=== PATIENT | male | born 1950 | race Caucasian/White ===

== ENCOUNTER 2022-01-25 03:58 | Inpatient (IN) | payer OTHER ==
[~2022-01-25] VITALS: Ht 170.2 cm; Wt 70.6 kg
[2022-01-25] MEDS ORDERED: ONDANSETRON HCL 4 MG/2 ML VIAL IV ONE (04:45)
[2022-01-25] MEDS ORDERED: SODIUM CHLORIDE 0.9% 500 ML IV ONE (04:45)
[2022-01-25] MEDS ORDERED: MORPHINE SULFATE INJ 2 MG/ml SYRG IV ONE (04:45)
[2022-01-25 04:58] LABS: Basophils # (auto) 0.1 10 ^3/uL (0-0.2); Basophils % (auto) 0.4 % (0.0-2.0); Eosinophils # (auto) 0.1 10 ^3/uL (0-0.8); Eosinophils % (auto) 0.3 % (0.0-7.0); Hematocrit 46.1 % (41.0-53.0); Hemoglobin 13.1 g/dL (13.5-17.5); Lymphocytes # (auto) 1.6 10 ^3/uL (0.4-5.4); Lymphocytes % (auto) 7.1 % (10.0-50.0); Mean Corpuscular Hemoglobin 24.5 pg (28.0-32.0); Mean Corpuscular Hgb Conc. 28.5 g/dL (32.0-36.0); Mean Corpuscular Volume 85.8 fL (80.0-100.0); Monocytes # (auto) 1.3 10 ^3/uL (0-1.3); Neutrophils # (auto) 19.3 10 ^3/uL (1.6-8.6); Neutrophils % (auto) 86.2 % (37.0-80.0); Nucleated Red Blood Cells % 0.1 %; Red Blood Cells 5.37 10^6/uL (4.5-5.90); Red Cell Distribution Width 18.3 % (11.8-14.3); White Blood Cell 22.4 10^3/uL (4.4-10.8)
[2022-01-25] MEDS ORDERED: IOHEXOL 350 MG/ML 100ML IJ ONE (05:03)
[2022-01-25] MEDS ORDERED: MORPHINE SULFATE 4 MG/ML SYR/VIAL ONE (05:08)
[2022-01-25] MEDS ORDERED: PIPERACILLIN-TAZO 4.5GM 100 ML IV ONE (06:00)
[2022-01-25 06:32] LABS: INR 1.13 (0.9-1.15)
[2022-01-25] MEDS ORDERED: InsuLIN R (HUMAN) 100 UNITS in SODIUM CHL 0.9% 99 ML IV SCH ×2 (06:45→21:45)
[2022-01-25] MEDS ORDERED: DEXTROSE (50%) 50ML SYRG IV PRN ×2 (06:45→10:15)
[2022-01-25] MEDS ORDERED: INSULIN LANTUS (GLARGINE) 1 /0.01ml (100units/ml) SC ONE (06:45)
[2022-01-25] MEDS ORDERED: SODIUM CHLORIDE 0.9% 1,000 ML IV ONE ×2 (07:00→08:00)
[2022-01-25] MEDS ORDERED: InsuLIN REG 1unit/0.01ml Soln (100units/ml) IV ONE (07:00)
[2022-01-25 07:07] LABS: Lactic Acid w/Reflex 5.7 mmol/L (0.4-2.0)
[2022-01-25] MEDS: ACCU-CHEK COMFORT CURVE STRIP VI SCH ×10 (07:43→22:42)
[2022-01-25] MEDS ORDERED: ENOXAPARIN SOD 100 MG/1 ML SYRINGE SC ONE (08:00)
[2022-01-25] MEDS ORDERED: cefTRIAXone 1GM/50ML D5W 50 ML IV ONE (08:00)
[2022-01-25 09:14] LABS: Urine WBC None Seen /hpf (0 - 3)
[2022-01-25 09:22] LABS: BUN/Creatinine Ratio 16.2
[2022-01-25 09:23] LABS: Albumin 3.1 g/dL (3.4-5.0); Bilirubin, Total 0.5 mg/dL (0.2-1.0); Calcium 8.3 mg/dL (8.5-10.1); Magnesium 3.2 mg/dL (1.6-2.6); Total Protein 6.5 g/dL (6.4-8.2)
[2022-01-25 09:28] LABS: Potassium 6.1 mmol/L (3.5-5.1)
[2022-01-25 09:34] LABS: Urine Bacteria FEW /hpf (None Seen); Urine Blood 2+ /uL (Negative); Urine Hyaline Cast FEW /lpf (0 - 2); Urine Mucus FEW (None Seen); Urine Specific Gravity 1.028 (1.001-1.035)
[2022-01-25] MEDS ORDERED: SODIUM BICARBONATE 8.4 % INJ 50ML VIAL IV ONE ×2 (09:45→10:00)
[2022-01-25] MEDS ORDERED: CALCIUM GLUC 1,000mg/50ml-NS 50 ML IV ONE (09:45)
[2022-01-25] MEDS ORDERED: NITROGLYCERIN 0.4 MG SL TAB SL PRN (10:00)
[2022-01-25] MEDS ORDERED: MORPHINE SULFATE INJ 2 MG/ml SYRG IV PRN (10:00)
[2022-01-25] MEDS ORDERED: HEPARIN SODIUM (PORCINE) 5000 UNITS/ML 1ML VIAL IV ONE ×2 (10:00→18:00)
[2022-01-25] MEDS ORDERED: SODIUM BICARBONATE 50ML VIAL 150 ML in D5W 5% 1,000 ML IV ONE (10:00)
[2022-01-25 10:01] LABS: Alcohol, Urine < 3.0 mg/dL (0-10); Amphetamine Screen, Urine NEGATIVE (NEGATIVE); Barbiturate Scree,Urine NEGATIVE (NEGATIVE); Benzodiazephine Screen, Urine NEGATIVE (NEGATIVE); Cannabinoid Screen, Urine NEGATIVE (NEGATIVE); Cocaine Screen, Urine NEGATIVE (NEGATIVE); Opiate Scree,Urine NEGATIVE (NEGATIVE); Phencyclidine Screen, Urine NEGATIVE (NEGATIVE)
[2022-01-25] MEDS: MORPHINE SULFATE INJ 2 MG/ml SYRG IV PRN (10:11)
[2022-01-25] MEDS ORDERED: VANCOMYCIN PER PHARMACY 0 MG IV SCH (10:15)
[2022-01-25] MEDS ORDERED: VANCOMYCIN 1GM/250ML 250 ML IV ONE (11:00)
[2022-01-25 11:18] LABS: Calcium 8.3 mg/dL (8.5-10.1)
[2022-01-25 11:28] LABS: Cholesterol 87 mg/dL (< 200); HDL Cholesterol 31 mg/dL (40-59); LDL Cholesterol 39 mg/dL (< 100); Triglycerides 168 mg/dL (< 150)
[2022-01-25 11:52] LABS: BUN/Creatinine Ratio 17.8
[2022-01-25] MEDS ORDERED: SODIUM CHLORIDE 0.9% 1,000 ML IV SCH (12:00)
[2022-01-25] MEDS: PIPERACILLIN-TAZOB 2.25GM 50 ML IV SCH ×2 (13:21→18:44)
[2022-01-25 13:44] LABS: Calcium 8.5 mg/dL (8.5-10.1); Potassium 4.1 mmol/L (3.5-5.1)
[2022-01-25 13:54] LABS: BUN/Creatinine Ratio 19.4
[2022-01-25] MEDS ORDERED: SODIUM CHL 0.9% 50 ML ONE ×2 (15:17→16:42)
[2022-01-25] MEDS ORDERED: MIDAZOLAM HCL 2MG/2ML 2ml VIAL (1mg/ml) ONE (15:17)
[2022-01-25] MEDS ORDERED: ANGIOMAX 250 MG VIAL IV ONE ×2 (15:17→16:42)
[2022-01-25] MEDS ORDERED: fentaNYL CITRATE 100 MCG/2 ML VL ONE (15:17)
[2022-01-25] MEDS ORDERED: IODIXANOL 320MG/ML 100ML BTL IV ONE ×2 (15:26→15:58)
[2022-01-25] MEDS ORDERED: LIDOCAINE 2%HCL (LOCAL ANESTH.) INJ 20ML MDV ONE (15:26)
[2022-01-25] MEDS ORDERED: CATHFLO ACTIVASE (ALTEPLASE) 2 MG VIAL ONE ×2 (16:46→17:06)
[2022-01-25] MEDS ORDERED: HEPARIN DRIP/D5W 100UNITS/ML 250 ML IV ONE (17:13)
[2022-01-25] MEDS ORDERED: ALTEPLASE (RECOMBINANT) 100 MG in STERILE WATER 100 ML IV SCH (17:15)
[2022-01-25] MEDS ORDERED: ALTEPLASE (RECOMBINANT) 100 MG in STERILE WATER 100 ML IV ONE (17:30)
[2022-01-25 18:00] VITALS: BP 103/54
[2022-01-25] MEDS ORDERED: HEPARIN DRIP/D5W 100UNITS/ML 250 ML IV SCH ×2 (18:00→21:45)
[2022-01-25] MEDS: SODIUM BICARBONATE 50ML VIAL 75 ML in SOD CHL 0.45% 1,000 ML IV SCH (18:42)
[2022-01-25 19:00] VITALS: BP_SYST 103; BP_DIAS 54; BP_DIAS 58
[2022-01-25 20:00] VITALS: BP 95/50
[2022-01-25 21:00] VITALS: BP 99/49
[2022-01-25 21:56] LABS: Hematocrit 38.9 % (41.0-53.0)
[2022-01-25 22:00] VITALS: BP 103/45
[2022-01-25 22:09] LABS: BUN/Creatinine Ratio 20.1; Calcium 8.4 mg/dL (8.5-10.1); Potassium 3.5 mmol/L (3.5-5.1)
[2022-01-25] MEDS: PANTOPRAZOLE 40 MG TAB PO SCH (22:18)
[2022-01-25 22:30] LABS: INR 1.23 (0.9-1.15); Partial Thromboplastin Time 53.8 sec (24.6-33.4)
[2022-01-25 23:00] VITALS: BP 93/55
[2022-01-26] VITALS (22 sets, daily range): BP systolic 83–143; BP diastolic 38–71
[2022-01-26] MEDS: PIPERACILLIN-TAZOB 2.25GM 50 ML IV SCH ×2 (00:11→06:14)
[2022-01-26] MEDS: ACCU-CHEK COMFORT CURVE STRIP VI SCH ×12 (00:15→20:45)
[2022-01-26] MEDS: MORPHINE SULFATE INJ 2 MG/ml SYRG IV PRN ×2 (02:09→08:17)
[2022-01-26] MEDS: SODIUM BICARBONATE 50ML VIAL 75 ML in SOD CHL 0.45% 1,000 ML IV SCH (02:45)
[2022-01-26 04:31] LABS: Eosinophils # (auto) 0 10 ^3/uL (0-0.8); Eosinophils % (auto) 0.1 % (0.0-7.0); Lymphocytes # (auto) 0.6 10 ^3/uL (0.4-5.4); Neutrophils # (auto) 9.8 10 ^3/uL (1.6-8.6); Nucleated Red Blood Cells % 0.1 %
[2022-01-26 04:33] LABS: Basophils # (auto) 0.1 10 ^3/uL (0-0.2); Basophils % (auto) 0.5 % (0.0-2.0); Hematocrit 36.7 % (41.0-53.0); Hemoglobin 11.6 g/dL (13.5-17.5); Lymphocytes % (auto) 5.4 % (10.0-50.0); Mean Corpuscular Hemoglobin 24.5 pg (28.0-32.0); Mean Corpuscular Hgb Conc. 31.7 g/dL (32.0-36.0); Mean Corpuscular Volume 77.1 fL (80.0-100.0); Monocytes % (auto) 8.8 % (0.0-12.0); Neutrophils % (auto) 85.2 % (37.0-80.0); Red Blood Cells 4.76 10^6/uL (4.5-5.90); Red Cell Distribution Width 17.2 % (11.8-14.3); White Blood Cell 11.5 10^3/uL (4.4-10.8)
[2022-01-26 04:47] LABS: INR 1.04 (0.9-1.15); Partial Thromboplastin Time 29.1 sec (24.6-33.4)
[2022-01-26] MEDS ORDERED: HEPARIN SODIUM (PORCINE) 5000 UNITS/ML 1ML VIAL IV ONE (05:00)
[2022-01-26] MEDS ORDERED: POTASSIUM CHLORIDE 60 MEQ, LIDOCAINE 1% (LOCAL ANESTH.) 6 ML in SODIUM CHL 0.9% 500 ML IV ONE ×6 (08:45)
[2022-01-26] MEDS: PANTOPRAZOLE 40 MG TAB PO SCH ×2 (10:00→22:05)
[2022-01-26] MEDS ORDERED: INSULIN LANTUS (GLARGINE) 1 /0.01ml (100units/ml) SC SCH (10:00)
[2022-01-26] MEDS ORDERED: VANCOMYCIN 1GM/250ML 250 ML IV SCH (11:00)
[2022-01-26] MEDS ORDERED: LIDOCAINE 2%HCL (LOCAL ANESTH.) INJ 20ML MDV ONE (11:03)
[2022-01-26] MEDS ORDERED: IODIXANOL 320MG/ML 100ML BTL IV ONE ×2 (11:03→12:38)
[2022-01-26] MEDS ORDERED: fentaNYL CITRATE 100 MCG/2 ML VL ONE (11:04)
[2022-01-26] MEDS ORDERED: MIDAZOLAM HCL 2MG/2ML 2ml VIAL (1mg/ml) ONE (11:04)
[2022-01-26] MEDS ORDERED: SODIUM CHL 0.9% 0 ML ONE (11:04)
[2022-01-26] MEDS ORDERED: ANGIOMAX 250 MG VIAL IV ONE (11:04)
[2022-01-26] MEDS ORDERED: HEPARIN SODIUM (PORCINE) 5000 UNITS/ML 1ML VIAL ONE ×2 (11:32→12:21)
[2022-01-26] MEDS ORDERED: PIPERACILLIN-TAZOB 3.375GM 100 ML IV SCH ×2 (12:27→12:30)
[2022-01-26] MEDS: SOD CHL 0.45% 1,000 ML IV SCH ×2 (14:02→22:35)
[2022-01-26] MEDS: VANCOMYCIN 1GM/250ML 250 ML IV SCH (14:03)
[2022-01-26] MEDS: INSULIN LANTUS (GLARGINE) 1 /0.01ml (100units/ml) SC SCH (14:04)
[2022-01-26] MEDS ORDERED: DEXTROSE (50%) 50ML SYRG IV PRN (14:30)
[2022-01-26 16:21] LABS: INR 1.13 (0.9-1.15)
[2022-01-26 16:23] LABS: Partial Thromboplastin Time > 139.0 sec (24.6-33.4)
[2022-01-26] MEDS: InsuLIN REG 1unit/0.01ml Soln (100units/ml) SC SCH ×2 (16:30→20:47)
[2022-01-26] MEDS ORDERED: HEPARIN DRIP/D5W 100UNITS/ML 250 ML IV SCH (17:30)
[2022-01-26] MEDS: RIVAROXABAN 20 MG TAB PO SCH (18:02)
[2022-01-26 18:10] LABS: INR 1.08 (0.9-1.15); Partial Thromboplastin Time 62.1 sec (24.6-33.4)
[2022-01-26] MEDS: ATORVASTATIN 20 MG TAB PO SCH (22:05)
[2022-01-26] MEDS: CLINDAMYCIN 600MG IV 50 ML IV SCH (22:05)
[2022-01-26 23:34] LABS: INR 1.24 (0.9-1.15); Partial Thromboplastin Time 46.7 sec (24.6-33.4)
[2022-01-27] VITALS (22 sets, daily range): BP systolic 107–148; BP diastolic 60–80
[2022-01-27] MEDS: ACCU-CHEK COMFORT CURVE STRIP VI SCH ×6 (00:04→20:09)
[2022-01-27] MEDS: InsuLIN REG 1unit/0.01ml Soln (100units/ml) SC SCH ×6 (00:11→20:12)
[2022-01-27] MEDS: SOD CHL 0.45% 1,000 ML IV SCH (03:56)
[2022-01-27 04:07] LABS: Basophils # (auto) 0 10 ^3/uL (0-0.2); Basophils % (auto) 0.4 % (0.0-2.0); Eosinophils # (auto) 0 10 ^3/uL (0-0.8); Eosinophils % (auto) 0.6 % (0.0-7.0); Hematocrit 34.6 % (41.0-53.0); Hemoglobin 11.2 g/dL (13.5-17.5); Monocytes # (auto) 0.6 10 ^3/uL (0-1.3); Neutrophils # (auto) 4.7 10 ^3/uL (1.6-8.6); Nucleated Red Blood Cells % 0.1 %; Red Cell Distribution Width 17.7 % (11.8-14.3)
[2022-01-27 04:13] LABS: Lymphocytes % (auto) 15.2 % (10.0-50.0); Mean Corpuscular Hemoglobin 24.6 pg (28.0-32.0); Mean Corpuscular Hgb Conc. 32.2 g/dL (32.0-36.0); Mean Corpuscular Volume 76.3 fL (80.0-100.0); Monocytes % (auto) 9.6 % (0.0-12.0); Neutrophils % (auto) 74.2 % (37.0-80.0); Red Blood Cells 4.54 10^6/uL (4.5-5.90); White Blood Cell 6.3 10^3/uL (4.4-10.8)
[2022-01-27 04:24] LABS: INR 1.12 (0.9-1.15); Partial Thromboplastin Time 36.2 sec (24.6-33.4)
[2022-01-27 04:34] LABS: Calcium 7.9 mg/dL (8.5-10.1); Potassium 3.2 mmol/L (3.5-5.1)
[2022-01-27 04:38] LABS: Albumin 2.4 g/dL (3.4-5.0); BUN/Creatinine Ratio 13.9
[2022-01-27 04:40] LABS: Bilirubin, Total 0.3 mg/dL (0.2-1.0); Total Protein 5.2 g/dL (6.4-8.2)
[2022-01-27] MEDS: VANCOMYCIN 1GM/250ML 250 ML IV SCH ×2 (05:17→21:21)
[2022-01-27] MEDS: CLINDAMYCIN 600MG IV 50 ML IV SCH ×3 (06:18→22:24)
[2022-01-27] MEDS ORDERED: POTASSIUM CHL 20 Meq TABLET PO ONE ×2 (08:45→09:30)
[2022-01-27] MEDS: PANTOPRAZOLE 40 MG TAB PO SCH ×2 (09:53→22:24)
[2022-01-27] MEDS: INSULIN LANTUS (GLARGINE) 1 /0.01ml (100units/ml) SC SCH (09:58)
[2022-01-27] MEDS ORDERED: ASPI1TAB20 PO (16:44)
[2022-01-27] MEDS ORDERED: MONT5CHW23 PO (17:06)
[2022-01-27] MEDS ORDERED: DOCU100T15 PO (17:06)
[2022-01-27] MEDS ORDERED: RAMI5CAP40 PO (17:06)
[2022-01-27] MEDS ORDERED: GLIP10TA9 PO (17:06)
[2022-01-27] MEDS ORDERED: LATA0.0019 EACHEYE (17:06)
[2022-01-27] MEDS ORDERED: PIO30T PO (17:06)
[2022-01-27] MEDS ORDERED: APIX2.5T PO (17:06)
[2022-01-27] MEDS ORDERED: MULT-928 PO (17:06)
[2022-01-27] MEDS ORDERED: ATO40T PO (17:06)
[2022-01-27] MEDS ORDERED: METF-370 PO ×2 (17:06)
[2022-01-27] MEDS ORDERED: FLUC200T50 PO (17:06)
[2022-01-27] MEDS ORDERED: TAM04C PO (17:06)
[2022-01-27] MEDS: TAMSULOSIN HYDROCHLORIDE 0.4 MG CAP PO SCH (17:57)
[2022-01-27] MEDS: RIVAROXABAN 20 MG TAB PO SCH (17:57)
[2022-01-27] MEDS: ATORVASTATIN 20 MG TAB PO SCH (22:24)
[2022-01-27] MEDS: LATANOPROST 0.005 % OPTH(EYE) SOL 2.5ML EACHEYE SCH (22:25)
[2022-01-28] VITALS (18 sets, daily range): BP systolic 66–142; BP diastolic 28–76
[2022-01-28] MEDS: ACCU-CHEK COMFORT CURVE STRIP VI SCH ×7 (00:19→23:49)
[2022-01-28] MEDS: InsuLIN REG 1unit/0.01ml Soln (100units/ml) SC SCH ×7 (00:22→23:57)
[2022-01-28 04:05] LABS: Basophils # (auto) 0 10 ^3/uL (0-0.2); Eosinophils # (auto) 0.1 10 ^3/uL (0-0.8); Lymphocytes # (auto) 0.7 10 ^3/uL (0.4-5.4); Nucleated Red Blood Cells % 0.1 %
[2022-01-28 04:07] LABS: Basophils % (auto) 0.5 % (0.0-2.0); Eosinophils % (auto) 3.1 % (0.0-7.0); Lymphocytes % (auto) 17.1 % (10.0-50.0); Mean Corpuscular Hemoglobin 24.7 pg (28.0-32.0); Mean Corpuscular Hgb Conc. 32.5 g/dL (32.0-36.0); Mean Corpuscular Volume 76.1 fL (80.0-100.0); Monocytes # (auto) 0.4 10 ^3/uL (0-1.3); Monocytes % (auto) 8.6 % (0.0-12.0); Neutrophils % (auto) 70.7 % (37.0-80.0); Red Blood Cells 4.47 10^6/uL (4.5-5.90); White Blood Cell 4.3 10^3/uL (4.4-10.8)
[2022-01-28 04:12] LABS: BUN/Creatinine Ratio 15.5; Calcium 8.2 mg/dL (8.5-10.1); Potassium 3.3 mmol/L (3.5-5.1)
[2022-01-28] MEDS ORDERED: POTASSIUM CHL 20 Meq TABLET PO ONE (09:15)
[2022-01-28] MEDS: PANTOPRAZOLE 40 MG TAB PO SCH ×2 (09:37→21:43)
[2022-01-28] MEDS: INSULIN LANTUS (GLARGINE) 1 /0.01ml (100units/ml) SC SCH ×2 (10:00→21:45)
[2022-01-28] MEDS: SOD CHL 0.45% 1,000 ML IV SCH (11:30)
[2022-01-28] MEDS: CLINDAMYCIN 600MG IV 50 ML IV SCH ×2 (15:02→21:43)
[2022-01-28] MEDS: VANCOMYCIN 1GM/250ML 250 ML IV SCH (17:08)
[2022-01-28] MEDS: TAMSULOSIN HYDROCHLORIDE 0.4 MG CAP PO SCH (17:22)
[2022-01-28] MEDS: RIVAROXABAN 20 MG TAB PO SCH (17:23)
[2022-01-28] MEDS: ATORVASTATIN 20 MG TAB PO SCH (21:42)
[2022-01-28] MEDS: LATANOPROST 0.005 % OPTH(EYE) SOL 2.5ML EACHEYE SCH (22:07)
[2022-01-29] MEDS: VANCOMYCIN 1GM/250ML 250 ML IV SCH ×2 (04:42→16:00)
[2022-01-29] MEDS: ACCU-CHEK COMFORT CURVE STRIP VI SCH ×6 (04:42→22:32)
[2022-01-29] MEDS: InsuLIN REG 1unit/0.01ml Soln (100units/ml) SC SCH ×5 (04:43→20:15)
[2022-01-29 05:00] VITALS: BP 106/56
[2022-01-29 05:24] LABS: Basophils # (auto) 0 10 ^3/uL (0-0.2); Basophils % (auto) 0.7 % (0.0-2.0); Eosinophils # (auto) 0.2 10 ^3/uL (0-0.8); Eosinophils % (auto) 5.5 % (0.0-7.0); Hematocrit 34.3 % (41.0-53.0); Hemoglobin 11.3 g/dL (13.5-17.5); Lymphocytes # (auto) 0.7 10 ^3/uL (0.4-5.4); Lymphocytes % (auto) 17.9 % (10.0-50.0); Mean Corpuscular Hemoglobin 24.9 pg (28.0-32.0); Mean Corpuscular Hgb Conc. 32.9 g/dL (32.0-36.0); Mean Corpuscular Volume 75.9 fL (80.0-100.0); Monocytes # (auto) 0.4 10 ^3/uL (0-1.3); Monocytes % (auto) 10.7 % (0.0-12.0); Neutrophils # (auto) 2.5 10 ^3/uL (1.6-8.6); Neutrophils % (auto) 65.2 % (37.0-80.0); Nucleated Red Blood Cells % 0.1 %; Red Blood Cells 4.52 10^6/uL (4.5-5.90); Red Cell Distribution Width 17.5 % (11.8-14.3); White Blood Cell 3.8 10^3/uL (4.4-10.8)
[2022-01-29 05:44] LABS: BUN/Creatinine Ratio 26.5; Calcium 8.4 mg/dL (8.5-10.1); Potassium 3.6 mmol/L (3.5-5.1)
[2022-01-29] MEDS: CLINDAMYCIN 600MG IV 50 ML IV SCH ×3 (05:57→22:32)
[2022-01-29 09:00] VITALS: BP 117/60
[2022-01-29] MEDS: PANTOPRAZOLE 40 MG TAB PO SCH ×2 (09:29→22:32)
[2022-01-29] MEDS: INSULIN LANTUS (GLARGINE) 1 /0.01ml (100units/ml) SC SCH ×2 (09:38→22:46)
[2022-01-29 13:00] VITALS: BP 122/71
[2022-01-29] MEDS: RIVAROXABAN 20 MG TAB PO SCH (16:48)
[2022-01-29] MEDS: TAMSULOSIN HYDROCHLORIDE 0.4 MG CAP PO SCH (16:49)
[2022-01-29 17:00] VITALS: BP 129/70
[2022-01-29] MEDS ORDERED: DEXTROSE (50%) 50ML SYRG IV PRN (21:00)
[2022-01-29 22:00] VITALS: BP 102/33
[2022-01-29] MEDS ORDERED: InsuLIN REG 1unit/0.01ml Soln (100units/ml) SC SCH (22:00)
[2022-01-29] MEDS: LATANOPROST 0.005 % OPTH(EYE) SOL 2.5ML EACHEYE SCH (22:31)
[2022-01-29] MEDS: ATORVASTATIN 20 MG TAB PO SCH (22:32)
[2022-01-30 05:00] VITALS: BP 118/68
[2022-01-30] MEDS: CLINDAMYCIN 600MG IV 50 ML IV SCH ×3 (05:22→22:20)
[2022-01-30] MEDS: ACCU-CHEK COMFORT CURVE STRIP VI SCH ×3 (06:09→22:20)
[2022-01-30 06:24] LABS: Basophils # (auto) 0 10 ^3/uL (0-0.2); Calcium 8.1 mg/dL (8.5-10.1); Hemoglobin 11.5 g/dL (13.5-17.5); Monocytes # (auto) 0.6 10 ^3/uL (0-1.3); Neutrophils # (auto) 3.3 10 ^3/uL (1.6-8.6); Potassium 3.9 mmol/L (3.5-5.1)
[2022-01-30 06:29] LABS: Basophils % (auto) 0.7 % (0.0-2.0); Eosinophils # (auto) 0.2 10 ^3/uL (0-0.8); Eosinophils % (auto) 4.6 % (0.0-7.0); Hematocrit 34.9 % (41.0-53.0); Lymphocytes # (auto) 0.9 10 ^3/uL (0.4-5.4); Mean Corpuscular Volume 75.7 fL (80.0-100.0); Neutrophils % (auto) 65.7 % (37.0-80.0); Nucleated Red Blood Cells % 0.2 %; Red Blood Cells 4.61 10^6/uL (4.5-5.90); Red Cell Distribution Width 17.3 % (11.8-14.3); White Blood Cell 5.1 10^3/uL (4.4-10.8)
[2022-01-30] MEDS ORDERED: InsuLIN REG 1unit/0.01ml Soln (100units/ml) SC SCH (07:00)
[2022-01-30 09:00] VITALS: BP 136/79
[2022-01-30] MEDS: VANCOMYCIN 1GM/250ML 250 ML IV SCH ×2 (10:24→20:33)
[2022-01-30] MEDS: PANTOPRAZOLE 40 MG TAB PO SCH ×2 (10:38→22:20)
[2022-01-30] MEDS: INSULIN LANTUS (GLARGINE) 1 /0.01ml (100units/ml) SC SCH ×2 (10:40→22:20)
[2022-01-30] MEDS ORDERED: DEXTROSE (50%) 50ML SYRG IV PRN (11:45)
[2022-01-30 13:00] VITALS: BP 128/69
[2022-01-30] MEDS ORDERED: PIPERACILLIN-TAZO 4.5GM 100 ML IV ONE (16:15)
[2022-01-30] MEDS ORDERED: HEPARIN DRIP/D5W 100UNITS/ML 250 ML IV SCH (16:15)
[2022-01-30 17:00] VITALS: BP 125/65
[2022-01-30] MEDS: TAMSULOSIN HYDROCHLORIDE 0.4 MG CAP PO SCH (17:30)
[2022-01-30 17:45] LABS: INR 1.06 (0.9-1.15); Partial Thromboplastin Time 26.8 sec (24.6-33.4)
[2022-01-30] MEDS: InsuLIN REG 1unit/0.01ml Soln (100units/ml) SC SCH ×2 (18:57→22:20)
[2022-01-30] MEDS: SODIUM CHLORIDE 0.9% 1,000 ML IV SCH (20:29)
[2022-01-30 22:00] VITALS: BP 125/68
[2022-01-30] MEDS: ATORVASTATIN 20 MG TAB PO SCH (22:20)
[2022-01-30] MEDS: LATANOPROST 0.005 % OPTH(EYE) SOL 2.5ML EACHEYE SCH (22:20)
[2022-01-31] MEDS: PIPERACILLIN-TAZO 4.5GM 100 ML IV SCH ×4 (00:27→22:58)
[2022-01-31 03:21] LABS: INR 1.03 (0.9-1.15); Partial Thromboplastin Time 29.8 sec (24.6-33.4)
[2022-01-31] MEDS ORDERED: HEPARIN SODIUM (PORCINE) 5000 UNITS/ML 1ML VIAL IV ONE (03:45)
[2022-01-31] MEDS: VANCOMYCIN 1GM/250ML 250 ML IV SCH ×2 (04:55→15:50)
[2022-01-31 05:00] VITALS: BP 96/59
[2022-01-31] MEDS: ACCU-CHEK COMFORT CURVE STRIP VI SCH ×4 (05:45→22:04)
[2022-01-31] MEDS: CLINDAMYCIN 600MG IV 50 ML IV SCH ×3 (06:13→22:04)
[2022-01-31] MEDS: InsuLIN REG 1unit/0.01ml Soln (100units/ml) SC SCH ×4 (06:32→22:06)
[2022-01-31 09:00] VITALS: BP 97/65
[2022-01-31 09:17] LABS: Lymphocytes % (auto) 20.7 % (10.0-50.0); Monocytes % (auto) 12.3 % (0.0-12.0); White Blood Cell 4.4 10^3/uL (4.4-10.8)
[2022-01-31 09:18] LABS: Basophils # (auto) 0 10 ^3/uL (0-0.2); Basophils % (auto) 0.7 % (0.0-2.0); Eosinophils # (auto) 0.2 10 ^3/uL (0-0.8); Eosinophils % (auto) 4.3 % (0.0-7.0); Hematocrit 36.5 % (41.0-53.0); Hemoglobin 11.7 g/dL (13.5-17.5); Lymphocytes # (auto) 0.9 10 ^3/uL (0.4-5.4); Mean Corpuscular Hemoglobin 24.6 pg (28.0-32.0); Mean Corpuscular Volume 76.8 fL (80.0-100.0); Monocytes # (auto) 0.5 10 ^3/uL (0-1.3); Neutrophils # (auto) 2.8 10 ^3/uL (1.6-8.6); Nucleated Red Blood Cells % 0.1 %; Red Blood Cells 4.75 10^6/uL (4.5-5.90)
[2022-01-31 09:19] LABS: Mean Corpuscular Hgb Conc. 32.1 g/dL (32.0-36.0); Red Cell Distribution Width 17.5 % (11.8-14.3)
[2022-01-31 10:01] LABS: INR 1.06 (0.9-1.15)
[2022-01-31] MEDS: HEPARIN DRIP/D5W 100UNITS/ML 250 ML IV SCH (11:48)
[2022-01-31] MEDS: PANTOPRAZOLE 40 MG TAB PO SCH ×2 (11:48→22:04)
[2022-01-31] MEDS: INSULIN LANTUS (GLARGINE) 1 /0.01ml (100units/ml) SC SCH ×2 (11:49→22:05)
[2022-01-31] MEDS: SODIUM CHLORIDE 0.9% 1,000 ML IV SCH ×2 (11:49→21:10)
[2022-01-31 13:00] VITALS: BP 104/62
[2022-01-31 16:45] LABS: INR 1.04 (0.9-1.15)
[2022-01-31 17:00] VITALS: BP 109/57
[2022-01-31] MEDS: TAMSULOSIN HYDROCHLORIDE 0.4 MG CAP PO SCH (19:43)
[2022-01-31] MEDS: LATANOPROST 0.005 % OPTH(EYE) SOL 2.5ML EACHEYE SCH (22:04)
[2022-01-31] MEDS: ATORVASTATIN 20 MG TAB PO SCH (22:04)
[2022-01-31 22:13] VITALS: BP 120/73
[2022-01-31 22:55] LABS: INR 1.08 (0.9-1.15); Partial Thromboplastin Time 50.5 sec (24.6-33.4)
[2022-02-01] MEDS: HEPARIN DRIP/D5W 100UNITS/ML 250 ML IV SCH (02:07)
[2022-02-01 04:50] VITALS: BP 118/64
[2022-02-01] MEDS: CLINDAMYCIN 600MG IV 50 ML IV SCH ×4 (05:43→21:33)
[2022-02-01] MEDS: InsuLIN REG 1unit/0.01ml Soln (100units/ml) SC SCH ×4 (05:47→22:00)
[2022-02-01] MEDS: PIPERACILLIN-TAZO 4.5GM 100 ML IV SCH (06:00)
[2022-02-01 06:55] LABS: Basophils # (auto) 0 10 ^3/uL (0-0.2); Mean Corpuscular Hemoglobin 24.6 pg (28.0-32.0); Mean Corpuscular Volume 76.6 fL (80.0-100.0); Monocytes # (auto) 0.7 10 ^3/uL (0-1.3); White Blood Cell 5.4 10^3/uL (4.4-10.8)
[2022-02-01 06:57] LABS: Basophils % (auto) 0.9 % (0.0-2.0); Eosinophils # (auto) 0.2 10 ^3/uL (0-0.8); Eosinophils % (auto) 4.6 % (0.0-7.0); Hematocrit 35.5 % (41.0-53.0); Hemoglobin 11.4 g/dL (13.5-17.5); Lymphocytes # (auto) 1.1 10 ^3/uL (0.4-5.4); Mean Corpuscular Hgb Conc. 32.2 g/dL (32.0-36.0); Monocytes % (auto) 13.7 % (0.0-12.0); Neutrophils # (auto) 3.2 10 ^3/uL (1.6-8.6); Neutrophils % (auto) 59.8 % (37.0-80.0); Nucleated Red Blood Cells % 0.2 %; Red Blood Cells 4.64 10^6/uL (4.5-5.90); Red Cell Distribution Width 17.4 % (11.8-14.3)
[2022-02-01 07:00] LABS: Potassium 3.5 mmol/L (3.5-5.1)
[2022-02-01 07:07] LABS: BUN/Creatinine Ratio 19.6; Calcium 7.8 mg/dL (8.5-10.1)
[2022-02-01 08:20] VITALS: BP 99/54
[2022-02-01 09:58] LABS: INR 1.03 (0.9-1.15)
[2022-02-01] MEDS ORDERED: HEPARIN DRIP/D5W 100UNITS/ML 250 ML IV SCH (11:00)
[2022-02-01] MEDS: ACCU-CHEK COMFORT CURVE STRIP VI SCH ×4 (11:07→21:34)
[2022-02-01] MEDS: PANTOPRAZOLE 40 MG TAB PO SCH ×2 (11:07→21:34)
[2022-02-01] MEDS: SODIUM CHLORIDE 0.9% 1,000 ML IV SCH ×2 (11:07→21:34)
[2022-02-01 12:40] VITALS: BP 113/66
[2022-02-01] MEDS: VANCOMYCIN 1GM/250ML 250 ML IV SCH (15:00)
[2022-02-01 16:15] VITALS: BP 116/64
[2022-02-01] MEDS: TAMSULOSIN HYDROCHLORIDE 0.4 MG CAP PO SCH (18:51)
[2022-02-01] MEDS: RIVAROXABAN 20 MG TAB PO SCH (18:51)
[2022-02-01] MEDS: LATANOPROST 0.005 % OPTH(EYE) SOL 2.5ML EACHEYE SCH (21:33)
[2022-02-01] MEDS: ATORVASTATIN 20 MG TAB PO SCH (21:34)
[2022-02-01 22:00] VITALS: BP 116/53
[2022-02-01] MEDS: INSULIN LANTUS (GLARGINE) 1 /0.01ml (100units/ml) SC SCH (22:01)
[2022-02-02] MEDS: VANCOMYCIN 1GM/250ML 250 ML IV SCH ×2 (02:36→16:02)
[2022-02-02 05:00] VITALS: BP 96/57
[2022-02-02] MEDS: CLINDAMYCIN 600MG IV 50 ML IV SCH ×3 (05:34→22:33)
[2022-02-02] MEDS: InsuLIN REG 1unit/0.01ml Soln (100units/ml) SC SCH ×4 (06:52→22:27)
[2022-02-02] MEDS: ACCU-CHEK COMFORT CURVE STRIP VI SCH ×4 (06:52→22:24)
[2022-02-02] MEDS ORDERED: INSULIN LANTUS (GLARGINE) 1 /0.01ml (100units/ml) SC SCH (07:00)
[2022-02-02 08:10] VITALS: BP 125/64
[2022-02-02 12:15] VITALS: BP 117/54
[2022-02-02] MEDS ORDERED: IOHEXOL 350 MG/ML 100ML IJ ONE (12:38)
[2022-02-02] MEDS: PANTOPRAZOLE 40 MG TAB PO SCH ×2 (14:13→22:37)
[2022-02-02 16:10] VITALS: BP 109/56
[2022-02-02] MEDS: TAMSULOSIN HYDROCHLORIDE 0.4 MG CAP PO SCH (19:24)
[2022-02-02] MEDS: RIVAROXABAN 20 MG TAB PO SCH (19:24)
[2022-02-02 22:00] VITALS: BP 110/57
[2022-02-02] MEDS: INSULIN LANTUS (GLARGINE) 1 /0.01ml (100units/ml) SC SCH (22:32)
[2022-02-02] MEDS: ATORVASTATIN 20 MG TAB PO SCH (22:34)
[2022-02-02] MEDS: LATANOPROST 0.005 % OPTH(EYE) SOL 2.5ML EACHEYE SCH (22:37)
[2022-02-03] MEDS: VANCOMYCIN 1GM/250ML 250 ML IV SCH ×2 (03:15→14:37)
[2022-02-03 04:10] LABS: Basophils # (auto) 0 10 ^3/uL (0-0.2); Eosinophils # (auto) 0.2 10 ^3/uL (0-0.8); Hemoglobin 10.8 g/dL (13.5-17.5); Monocytes # (auto) 0.7 10 ^3/uL (0-1.3)
[2022-02-03 04:16] LABS: Basophils % (auto) 0.8 % (0.0-2.0); Eosinophils % (auto) 4.1 % (0.0-7.0); Lymphocytes # (auto) 0.9 10 ^3/uL (0.4-5.4); Lymphocytes % (auto) 18.9 % (10.0-50.0); Mean Corpuscular Hemoglobin 24.2 pg (28.0-32.0); Mean Corpuscular Hgb Conc. 31.8 g/dL (32.0-36.0); Mean Corpuscular Volume 75.9 fL (80.0-100.0); Monocytes % (auto) 14.5 % (0.0-12.0); Neutrophils % (auto) 61.7 % (37.0-80.0); Nucleated Red Blood Cells % 0.1 %; Red Blood Cells 4.48 10^6/uL (4.5-5.90); Red Cell Distribution Width 18.1 % (11.8-14.3); White Blood Cell 4.8 10^3/uL (4.4-10.8)
[2022-02-03 05:00] VITALS: BP 117/62
[2022-02-03 05:09] LABS: Potassium 3.1 mmol/L (3.5-5.1)
[2022-02-03 05:16] LABS: Calcium 8.3 mg/dL (8.5-10.1)
[2022-02-03] MEDS: CLINDAMYCIN 600MG IV 50 ML IV SCH ×3 (05:49→21:23)
[2022-02-03] MEDS: InsuLIN REG 1unit/0.01ml Soln (100units/ml) SC SCH ×4 (06:11→21:21)
[2022-02-03] MEDS: ACCU-CHEK COMFORT CURVE STRIP VI SCH ×4 (06:11→21:20)
[2022-02-03] MEDS: INSULIN LANTUS (GLARGINE) 1 /0.01ml (100units/ml) SC SCH ×2 (06:11→21:22)
[2022-02-03 08:15] VITALS: BP 108/62
[2022-02-03] MEDS: PANTOPRAZOLE 40 MG TAB PO SCH ×2 (08:57→21:23)
[2022-02-03 12:10] VITALS: BP 122/61
[2022-02-03 16:10] VITALS: BP 100/61
[2022-02-03] MEDS: TAMSULOSIN HYDROCHLORIDE 0.4 MG CAP PO SCH (17:16)
[2022-02-03] MEDS: RIVAROXABAN 20 MG TAB PO SCH (17:16)
[2022-02-03] MEDS: ATORVASTATIN 20 MG TAB PO SCH (21:23)
[2022-02-03] MEDS: LATANOPROST 0.005 % OPTH(EYE) SOL 2.5ML EACHEYE SCH (21:25)
[2022-02-03 22:00] VITALS: BP 105/53
[2022-02-04] MEDS: VANCOMYCIN 1GM/250ML 250 ML IV SCH ×2 (03:20→15:25)
[2022-02-04] MEDS: CLINDAMYCIN 600MG IV 50 ML IV SCH ×3 (04:54→21:19)
[2022-02-04 05:00] VITALS: BP 98/56
[2022-02-04] MEDS: InsuLIN REG 1unit/0.01ml Soln (100units/ml) SC SCH ×4 (06:17→22:48)
[2022-02-04] MEDS: ACCU-CHEK COMFORT CURVE STRIP VI SCH ×4 (06:17→23:01)
[2022-02-04] MEDS: INSULIN LANTUS (GLARGINE) 1 /0.01ml (100units/ml) SC SCH ×2 (06:19→22:50)
[2022-02-04 08:00] VITALS: BP 133/67
[2022-02-04] MEDS: PANTOPRAZOLE 40 MG TAB PO SCH ×2 (09:45→21:20)
[2022-02-04 12:00] VITALS: BP 111/60
[2022-02-04 16:00] VITALS: BP 119/63
[2022-02-04] MEDS: TAMSULOSIN HYDROCHLORIDE 0.4 MG CAP PO SCH (18:26)
[2022-02-04] MEDS: RIVAROXABAN 20 MG TAB PO SCH (18:26)
[2022-02-04] MEDS: LATANOPROST 0.005 % OPTH(EYE) SOL 2.5ML EACHEYE SCH (21:20)
[2022-02-04] MEDS: ATORVASTATIN 20 MG TAB PO SCH (21:20)
[2022-02-04 21:47] VITALS: BP 132/67
[2022-02-05] MEDS: VANCOMYCIN 1GM/250ML 250 ML IV SCH ×2 (02:40→14:51)
[2022-02-05] MEDS: CLINDAMYCIN 600MG IV 50 ML IV SCH (05:06)
[2022-02-05 05:38] VITALS: BP 124/60
[2022-02-05] MEDS: ACCU-CHEK COMFORT CURVE STRIP VI SCH ×4 (06:26→21:57)
[2022-02-05] MEDS: InsuLIN REG 1unit/0.01ml Soln (100units/ml) SC SCH ×4 (06:31→21:59)
[2022-02-05] MEDS: INSULIN LANTUS (GLARGINE) 1 /0.01ml (100units/ml) SC SCH ×2 (06:32→22:00)
[2022-02-05 08:00] VITALS: BP 115/64
[2022-02-05] MEDS: PANTOPRAZOLE 40 MG TAB PO SCH (10:16)
[2022-02-05 12:00] VITALS: BP 105/57
[2022-02-05] MEDS: CLINDAMYCIN HCL 150 MG CAP PO SCH ×2 (13:49→21:57)
[2022-02-05 16:00] VITALS: BP 116/67
[2022-02-05] MEDS: TAMSULOSIN HYDROCHLORIDE 0.4 MG CAP PO SCH (17:51)
[2022-02-05] MEDS: RIVAROXABAN 20 MG TAB PO SCH (17:52)
[2022-02-05] MEDS: ATORVASTATIN 20 MG TAB PO SCH (21:57)
[2022-02-05] MEDS: LATANOPROST 0.005 % OPTH(EYE) SOL 2.5ML EACHEYE SCH (21:57)
[2022-02-05 22:00] VITALS: BP 111/60
[2022-02-06] MEDS: VANCOMYCIN 1GM/250ML 250 ML IV SCH ×2 (02:49→14:25)
[2022-02-06 05:00] VITALS: BP 107/56
[2022-02-06] MEDS: CLINDAMYCIN HCL 150 MG CAP PO SCH ×3 (06:29→21:53)
[2022-02-06] MEDS: ACCU-CHEK COMFORT CURVE STRIP VI SCH ×4 (06:30→21:54)
[2022-02-06] MEDS: InsuLIN REG 1unit/0.01ml Soln (100units/ml) SC SCH ×4 (06:30→21:58)
[2022-02-06] MEDS: INSULIN LANTUS (GLARGINE) 1 /0.01ml (100units/ml) SC SCH ×2 (06:37→21:55)
[2022-02-06 09:00] VITALS: BP 114/49
[2022-02-06 12:44] VITALS: BP 126/66
[2022-02-06 17:00] VITALS: BP 106/61
[2022-02-06] MEDS: TAMSULOSIN HYDROCHLORIDE 0.4 MG CAP PO SCH (17:07)
[2022-02-06] MEDS: RIVAROXABAN 20 MG TAB PO SCH (17:07)
[2022-02-06 20:53] VITALS: BP 100/55
[2022-02-06] MEDS: ATORVASTATIN 20 MG TAB PO SCH (21:54)
[2022-02-06] MEDS: LATANOPROST 0.005 % OPTH(EYE) SOL 2.5ML EACHEYE SCH (22:00)
[2022-02-07] VITALS (21 sets, daily range): BP systolic 111–157; BP diastolic 59–84
[2022-02-07] MEDS: VANCOMYCIN 1GM/250ML 250 ML IV SCH ×2 (02:51→15:00)
[2022-02-07] MEDS: ACCU-CHEK COMFORT CURVE STRIP VI SCH ×4 (06:20→22:28)
[2022-02-07] MEDS: CLINDAMYCIN HCL 150 MG CAP PO SCH ×3 (06:23→22:26)
[2022-02-07] MEDS: InsuLIN REG 1unit/0.01ml Soln (100units/ml) SC SCH ×4 (07:00→22:27)
[2022-02-07 07:09] LABS: Basophils # (auto) 0.1 10 ^3/uL (0-0.2); Basophils % (auto) 1.2 % (0.0-2.0); Eosinophils # (auto) 0.3 10 ^3/uL (0-0.8); Hematocrit 34.5 % (41.0-53.0); Hemoglobin 11.1 g/dL (13.5-17.5); Lymphocytes # (auto) 0.9 10 ^3/uL (0.4-5.4); Lymphocytes % (auto) 15.6 % (10.0-50.0); Mean Corpuscular Hemoglobin 24.5 pg (28.0-32.0); Mean Corpuscular Hgb Conc. 32.3 g/dL (32.0-36.0); Mean Corpuscular Volume 75.9 fL (80.0-100.0); Monocytes # (auto) 0.6 10 ^3/uL (0-1.3); Monocytes % (auto) 10.1 % (0.0-12.0); Neutrophils # (auto) 3.8 10 ^3/uL (1.6-8.6); Neutrophils % (auto) 68.1 % (37.0-80.0); Red Blood Cells 4.54 10^6/uL (4.5-5.90); White Blood Cell 5.5 10^3/uL (4.4-10.8)
[2022-02-07 07:12] LABS: INR 1.21 (0.9-1.15); Partial Thromboplastin Time 37.9 sec (24.6-33.4)
[2022-02-07 07:14] LABS: BUN/Creatinine Ratio 15.9; Calcium 8.3 mg/dL (8.5-10.1); Potassium 3.9 mmol/L (3.5-5.1)
[2022-02-07] MEDS: INSULIN LANTUS (GLARGINE) 1 /0.01ml (100units/ml) SC SCH ×2 (07:25→22:28)
[2022-02-07] MEDS ORDERED: LIDOCAINE 2%HCL (LOCAL ANESTH.) INJ 20ML MDV ONE ×2 (13:35→14:28)
[2022-02-07] MEDS ORDERED: IOHEXOL 350 MG/ML 100ML IJ ONE (13:35)
[2022-02-07] MEDS ORDERED: ANGIOMAX 250 MG VIAL IV ONE ×2 (13:49→15:15)
[2022-02-07] MEDS ORDERED: MIDAZOLAM HCL 2MG/2ML 2ml VIAL (1mg/ml) ONE ×2 (13:49→14:28)
[2022-02-07] MEDS ORDERED: fentaNYL CITRATE 100 MCG/2 ML VL ONE ×2 (13:49→14:28)
[2022-02-07] MEDS ORDERED: SODIUM CHL 0.9% 50 ML ONE ×2 (13:50→15:15)
[2022-02-07] MEDS ORDERED: HYDROmorphone HCL 2 MG/ML VL/or syr ONE (15:22)
[2022-02-07] MEDS ORDERED: CATHFLO ACTIVASE (ALTEPLASE) 2 MG VIAL ONE ×3 (15:23→16:05)
[2022-02-07] MEDS ORDERED: ALTEPLASE (RECOMBINANT) 100 MG in STERILE WATER 100 ML IV ONE ×7 (15:30→18:45)
[2022-02-07] MEDS ORDERED: HEPARIN DRIP/D5W 100UNITS/ML 250 ML IV ONE (15:37)
[2022-02-07] MEDS ORDERED: MORPHINE SULFATE INJ 2 MG/ml SYRG ONE ×2 (17:53→17:56)
[2022-02-07] MEDS: HEPARIN DRIP/D5W 100UNITS/ML 250 ML IV SCH (18:00)
[2022-02-07] MEDS: TAMSULOSIN HYDROCHLORIDE 0.4 MG CAP PO SCH (18:00)
[2022-02-07] MEDS: RIVAROXABAN 20 MG TAB PO SCH (18:00)
[2022-02-07 22:18] LABS: Basophils # (auto) 0 10 ^3/uL (0-0.2); Basophils % (auto) 0.6 % (0.0-2.0); Eosinophils # (auto) 0.2 10 ^3/uL (0-0.8); Eosinophils % (auto) 2.7 % (0.0-7.0); Hematocrit 33.6 % (41.0-53.0); Hemoglobin 10.7 g/dL (13.5-17.5); Lymphocytes # (auto) 0.9 10 ^3/uL (0.4-5.4); Lymphocytes % (auto) 13.6 % (10.0-50.0); Mean Corpuscular Hemoglobin 24.3 pg (28.0-32.0); Mean Corpuscular Hgb Conc. 31.9 g/dL (32.0-36.0); Mean Corpuscular Volume 76.2 fL (80.0-100.0); Monocytes # (auto) 0.6 10 ^3/uL (0-1.3); Monocytes % (auto) 8.6 % (0.0-12.0); Neutrophils # (auto) 4.7 10 ^3/uL (1.6-8.6); Neutrophils % (auto) 74.5 % (37.0-80.0); Nucleated Red Blood Cells % 0.1 %; Red Cell Distribution Width 18.1 % (11.8-14.3); White Blood Cell 6.4 10^3/uL (4.4-10.8)
[2022-02-07] MEDS: ATORVASTATIN 20 MG TAB PO SCH (22:26)
[2022-02-07] MEDS: LATANOPROST 0.005 % OPTH(EYE) SOL 2.5ML EACHEYE SCH (22:26)
[2022-02-07] MEDS: MORPHINE SULFATE INJ 2 MG/ml SYRG IV PRN (23:07)
[2022-02-08] VITALS (24 sets, daily range): BP systolic 97–149; BP diastolic 53–77
[2022-02-08 01:21] LABS: INR 1.28 (0.9-1.15); Partial Thromboplastin Time 45.1 sec (24.6-33.4)
[2022-02-08] MEDS: VANCOMYCIN 1GM/250ML 250 ML IV SCH ×2 (03:07→15:08)
[2022-02-08] MEDS: MORPHINE SULFATE INJ 2 MG/ml SYRG IV PRN ×6 (03:08→20:19)
[2022-02-08] MEDS: CLINDAMYCIN HCL 150 MG CAP PO SCH (05:24)
[2022-02-08] MEDS: InsuLIN REG 1unit/0.01ml Soln (100units/ml) SC SCH ×4 (06:25→22:14)
[2022-02-08] MEDS: ACCU-CHEK COMFORT CURVE STRIP VI SCH ×4 (06:37→22:13)
[2022-02-08] MEDS: INSULIN LANTUS (GLARGINE) 1 /0.01ml (100units/ml) SC SCH ×2 (06:37→22:13)
[2022-02-08 07:51] LABS: Basophils # (auto) 0 10 ^3/uL (0-0.2); Hemoglobin 10.3 g/dL (13.5-17.5); Lymphocytes # (auto) 0.7 10 ^3/uL (0.4-5.4); Monocytes # (auto) 0.4 10 ^3/uL (0-1.3)
[2022-02-08 07:53] LABS: Basophils % (auto) 0.8 % (0.0-2.0); Eosinophils # (auto) 0.1 10 ^3/uL (0-0.8); Eosinophils % (auto) 0.9 % (0.0-7.0); Hematocrit 31.8 % (41.0-53.0); Mean Corpuscular Hemoglobin 24.8 pg (28.0-32.0); Mean Corpuscular Hgb Conc. 32.5 g/dL (32.0-36.0); Mean Corpuscular Volume 76.2 fL (80.0-100.0); Monocytes % (auto) 7.1 % (0.0-12.0); Neutrophils # (auto) 4.7 10 ^3/uL (1.6-8.6); Neutrophils % (auto) 79.2 % (37.0-80.0); Red Blood Cells 4.18 10^6/uL (4.5-5.90); Red Cell Distribution Width 18.4 % (11.8-14.3); White Blood Cell 5.9 10^3/uL (4.4-10.8)
[2022-02-08 08:16] LABS: INR 1.17 (0.9-1.15); Partial Thromboplastin Time 38.2 sec (24.6-33.4)
[2022-02-08 12:15] LABS: Calcium 7.9 mg/dL (8.5-10.1)
[2022-02-08 12:29] LABS: Anion Gap 9 (5-15); Blood Urea Nitrogen 9 mg/dL (7-18); Carbon Dioxide 21 mmol/L (21-32); Chloride 107 mmol/L (98-107); Glucose 192 mg/dL (74-106); Potassium 3.7 mmol/L (3.5-5.1); Sodium 137 mmol/L (136-145)
[2022-02-08 12:30] LABS: BUN/Creatinine Ratio 14.3; GFR African American 162 mL/min; GFR Non-African American 134 mL/min
[2022-02-08 15:31] LABS: INR 1.11 (0.9-1.15); Partial Thromboplastin Time 36.2 sec (24.6-33.4)
[2022-02-08] MEDS: HEPARIN DRIP/D5W 100UNITS/ML 250 ML IV SCH (15:36)
[2022-02-08] MEDS ORDERED: HEPARIN DRIP/D5W 100UNITS/ML 250 ML IV SCH ×3 (15:45→23:00)
[2022-02-08] MEDS ORDERED: LIDOCAINE 2%HCL (LOCAL ANESTH.) INJ 20ML MDV ONE (17:24)
[2022-02-08] MEDS ORDERED: IODIXANOL 320MG/ML 100ML BTL IV ONE (17:24)
[2022-02-08] MEDS ORDERED: ANGIOMAX 250 MG VIAL IV ONE (17:27)
[2022-02-08] MEDS ORDERED: SODIUM CHL 0.9% 0 ML ONE (17:27)
[2022-02-08] MEDS ORDERED: MIDAZOLAM HCL 2MG/2ML 2ml VIAL (1mg/ml) ONE ×2 (17:27→18:31)
[2022-02-08] MEDS ORDERED: fentaNYL CITRATE 100 MCG/2 ML VL ONE ×2 (17:27→18:31)
[2022-02-08] MEDS ORDERED: HEPARIN SODIUM (PORCINE) 5000 UNITS/ML 1ML VIAL ONE ×3 (17:49→19:24)
[2022-02-08 21:10] LABS: Basophils # (auto) 0.1 10 ^3/uL (0-0.2); Basophils % (auto) 0.8 % (0.0-2.0); Eosinophils # (auto) 0.1 10 ^3/uL (0-0.8); Hemoglobin 9.8 g/dL (13.5-17.5); Lymphocytes # (auto) 0.5 10 ^3/uL (0.4-5.4); Mean Corpuscular Hgb Conc. 32.7 g/dL (32.0-36.0)
[2022-02-08 21:12] LABS: Hematocrit 29.9 % (41.0-53.0); Lymphocytes % (auto) 7.6 % (10.0-50.0); Mean Corpuscular Hemoglobin 25.2 pg (28.0-32.0); Mean Corpuscular Volume 77.1 fL (80.0-100.0); Monocytes # (auto) 0.5 10 ^3/uL (0-1.3); Monocytes % (auto) 7.4 % (0.0-12.0); Neutrophils # (auto) 5.8 10 ^3/uL (1.6-8.6); Neutrophils % (auto) 82.2 % (37.0-80.0); Red Blood Cells 3.88 10^6/uL (4.5-5.90); Red Cell Distribution Width 18.3 % (11.8-14.3)
[2022-02-08 21:25] LABS: Albumin 2.3 g/dL (3.4-5.0); BUN/Creatinine Ratio 11.8; Calcium 7.7 mg/dL (8.5-10.1); Potassium 4.6 mmol/L (3.5-5.1)
[2022-02-08 21:28] LABS: Bilirubin, Total 0.5 mg/dL (0.2-1.0); Total Protein 5.5 g/dL (6.4-8.2)
[2022-02-08 21:46] LABS: INR 1.16 (0.9-1.15)
[2022-02-08 21:47] LABS: Partial Thromboplastin Time > 139.0 sec (24.6-33.4)
[2022-02-08] MEDS: TAMSULOSIN HYDROCHLORIDE 0.4 MG CAP PO SCH (22:00)
[2022-02-08] MEDS: LATANOPROST 0.005 % OPTH(EYE) SOL 2.5ML EACHEYE SCH (22:12)
[2022-02-08] MEDS: CLINDAMYCIN 600MG IV 50 ML IV SCH (22:13)
[2022-02-08] MEDS: ATORVASTATIN 20 MG TAB PO SCH (22:13)
[2022-02-09] VITALS (22 sets, daily range): BP systolic 89–131; BP diastolic 47–103
[2022-02-09] MEDS: VANCOMYCIN 1GM/250ML 250 ML IV SCH ×2 (03:30→17:56)
[2022-02-09] MEDS: CLINDAMYCIN 600MG IV 50 ML IV SCH ×3 (05:35→21:48)
[2022-02-09] MEDS: ACCU-CHEK COMFORT CURVE STRIP VI SCH ×4 (06:40→21:49)
[2022-02-09] MEDS: INSULIN LANTUS (GLARGINE) 1 /0.01ml (100units/ml) SC SCH ×2 (06:46→22:01)
[2022-02-09] MEDS: InsuLIN REG 1unit/0.01ml Soln (100units/ml) SC SCH ×4 (06:47→21:58)
[2022-02-09 07:43] LABS: Basophils # (auto) 0.1 10 ^3/uL (0-0.2); Basophils % (auto) 1.4 % (0.0-2.0); Eosinophils # (auto) 0.2 10 ^3/uL (0-0.8); Monocytes # (auto) 0.5 10 ^3/uL (0-1.3); Neutrophils # (auto) 2.8 10 ^3/uL (1.6-8.6); Nucleated Red Blood Cells % 0.1 %; White Blood Cell 4.2 10^3/uL (4.4-10.8)
[2022-02-09 07:45] LABS: Eosinophils % (auto) 3.6 % (0.0-7.0); Hematocrit 27.6 % (41.0-53.0); Lymphocytes # (auto) 0.7 10 ^3/uL (0.4-5.4); Lymphocytes % (auto) 16.9 % (10.0-50.0); Mean Corpuscular Hemoglobin 24.6 pg (28.0-32.0); Mean Corpuscular Hgb Conc. 32.6 g/dL (32.0-36.0); Mean Corpuscular Volume 75.6 fL (80.0-100.0); Monocytes % (auto) 11.2 % (0.0-12.0); Neutrophils % (auto) 66.9 % (37.0-80.0); Red Blood Cells 3.66 10^6/uL (4.5-5.90); Red Cell Distribution Width 18.3 % (11.8-14.3)
[2022-02-09 08:02] LABS: Potassium 4.2 mmol/L (3.5-5.1)
[2022-02-09 08:08] LABS: Albumin 2.3 g/dL (3.4-5.0); BUN/Creatinine Ratio 14.3; Bilirubin, Total 0.4 mg/dL (0.2-1.0); Calcium 7.6 mg/dL (8.5-10.1); Total Protein 4.8 g/dL (6.4-8.2)
[2022-02-09 08:15] LABS: INR 1.08 (0.9-1.15); Partial Thromboplastin Time 38.7 sec (24.6-33.4)
[2022-02-09] MEDS: MORPHINE SULFATE INJ 2 MG/ml SYRG IV PRN (08:29)
[2022-02-09] MEDS ORDERED: ENOXAPARIN SOD 80 MG/0.8ML SYRINGE SC ONE (16:30)
[2022-02-09 17:26] LABS: INR 1.04 (0.9-1.15); Partial Thromboplastin Time 30.5 sec (24.6-33.4)
[2022-02-09] MEDS: TAMSULOSIN HYDROCHLORIDE 0.4 MG CAP PO SCH (17:37)
[2022-02-09] MEDS: LATANOPROST 0.005 % OPTH(EYE) SOL 2.5ML EACHEYE SCH (21:47)
[2022-02-09] MEDS: ENOXAPARIN SOD 80 MG/0.8ML SYRINGE SC SCH (21:48)
[2022-02-09] MEDS: ATORVASTATIN 20 MG TAB PO SCH (21:48)
[2022-02-10] VITALS (8 sets, daily range): BP systolic 105–125; BP diastolic 49–65
[2022-02-10] MEDS: VANCOMYCIN 1GM/250ML 250 ML IV SCH ×2 (03:16→15:49)
[2022-02-10 03:52] LABS: Basophils # (auto) 0.1 10 ^3/uL (0-0.2); Basophils % (auto) 1.4 % (0.0-2.0); Eosinophils # (auto) 0.2 10 ^3/uL (0-0.8); Hemoglobin 9.1 g/dL (13.5-17.5); Lymphocytes # (auto) 0.8 10 ^3/uL (0.4-5.4); Lymphocytes % (auto) 21.5 % (10.0-50.0); Mean Corpuscular Hemoglobin 24.7 pg (28.0-32.0); Mean Corpuscular Hgb Conc. 32.7 g/dL (32.0-36.0); Mean Corpuscular Volume 75.5 fL (80.0-100.0); Monocytes # (auto) 0.5 10 ^3/uL (0-1.3); Monocytes % (auto) 13.5 % (0.0-12.0); Neutrophils # (auto) 2.2 10 ^3/uL (1.6-8.6); Neutrophils % (auto) 58.6 % (37.0-80.0); Red Cell Distribution Width 18.2 % (11.8-14.3); White Blood Cell 3.7 10^3/uL (4.4-10.8)
[2022-02-10 04:08] LABS: Calcium 8.1 mg/dL (8.5-10.1); Potassium 3.7 mmol/L (3.5-5.1)
[2022-02-10] MEDS: ACCU-CHEK COMFORT CURVE STRIP VI SCH ×4 (06:08→22:45)
[2022-02-10] MEDS: CLINDAMYCIN 600MG IV 50 ML IV SCH ×3 (06:08→22:46)
[2022-02-10] MEDS: InsuLIN REG 1unit/0.01ml Soln (100units/ml) SC SCH ×4 (06:20→22:43)
[2022-02-10] MEDS: INSULIN LANTUS (GLARGINE) 1 /0.01ml (100units/ml) SC SCH ×2 (06:27→22:45)
[2022-02-10] MEDS: ENOXAPARIN SOD 80 MG/0.8ML SYRINGE SC SCH ×2 (13:06→22:41)
[2022-02-10] MEDS: TAMSULOSIN HYDROCHLORIDE 0.4 MG CAP PO SCH (18:31)
[2022-02-10] MEDS: LATANOPROST 0.005 % OPTH(EYE) SOL 2.5ML EACHEYE SCH (22:41)
[2022-02-10] MEDS: ATORVASTATIN 20 MG TAB PO SCH (23:25)
[2022-02-11] VITALS (7 sets, daily range): BP systolic 78–121; BP diastolic 50–66
[2022-02-11 02:24] LABS: Basophils # (auto) 0 10 ^3/uL (0-0.2); Basophils % (auto) 1.3 % (0.0-2.0); Eosinophils # (auto) 0.1 10 ^3/uL (0-0.8); Hematocrit 25.6 % (41.0-53.0); Hemoglobin 8.8 g/dL (13.5-17.5); Lymphocytes # (auto) 0.8 10 ^3/uL (0.4-5.4); Lymphocytes % (auto) 21.3 % (10.0-50.0); Mean Corpuscular Hemoglobin 25.6 pg (28.0-32.0); Mean Corpuscular Hgb Conc. 34.3 g/dL (32.0-36.0); Mean Corpuscular Volume 74.7 fL (80.0-100.0); Monocytes # (auto) 0.5 10 ^3/uL (0-1.3); Monocytes % (auto) 12.6 % (0.0-12.0); Neutrophils # (auto) 2.2 10 ^3/uL (1.6-8.6); Neutrophils % (auto) 60.8 % (37.0-80.0); Red Blood Cells 3.43 10^6/uL (4.5-5.90); Red Cell Distribution Width 17.9 % (11.8-14.3); White Blood Cell 3.7 10^3/uL (4.4-10.8)
[2022-02-11 02:47] LABS: BUN/Creatinine Ratio 11.9
[2022-02-11] MEDS: VANCOMYCIN 1GM/250ML 250 ML IV SCH ×2 (03:17→15:04)
[2022-02-11] MEDS: InsuLIN REG 1unit/0.01ml Soln (100units/ml) SC SCH ×4 (06:31→22:04)
[2022-02-11] MEDS: ACCU-CHEK COMFORT CURVE STRIP VI SCH ×4 (06:32→21:39)
[2022-02-11] MEDS: CLINDAMYCIN 600MG IV 50 ML IV SCH ×3 (06:32→21:39)
[2022-02-11] MEDS: INSULIN LANTUS (GLARGINE) 1 /0.01ml (100units/ml) SC SCH ×2 (06:34→22:03)
[2022-02-11] MEDS: ENOXAPARIN SOD 80 MG/0.8ML SYRINGE SC SCH ×2 (10:09→21:39)
[2022-02-11] MEDS: TAMSULOSIN HYDROCHLORIDE 0.4 MG CAP PO SCH (17:42)
[2022-02-11] MEDS: LATANOPROST 0.005 % OPTH(EYE) SOL 2.5ML EACHEYE SCH (21:38)
[2022-02-11] MEDS: ATORVASTATIN 20 MG TAB PO SCH (21:39)
[2022-02-12] MEDS: VANCOMYCIN 1GM/250ML 250 ML IV SCH ×2 (03:18→15:02)
[2022-02-12 05:29] VITALS: BP 104/41
[2022-02-12] MEDS: INSULIN LANTUS (GLARGINE) 1 /0.01ml (100units/ml) SC SCH ×2 (06:19→21:57)
[2022-02-12] MEDS: ACCU-CHEK COMFORT CURVE STRIP VI SCH ×4 (06:25→21:56)
[2022-02-12] MEDS: InsuLIN REG 1unit/0.01ml Soln (100units/ml) SC SCH ×4 (06:25→21:57)
[2022-02-12] MEDS: CLINDAMYCIN 600MG IV 50 ML IV SCH ×3 (06:25→21:55)
[2022-02-12 06:52] LABS: Albumin 2.4 g/dL (3.4-5.0); Potassium 3.8 mmol/L (3.5-5.1)
[2022-02-12 06:54] LABS: BUN/Creatinine Ratio 14.3; Phosphorus 3.8 mg/dL (2.5-4.90)
[2022-02-12 09:00] VITALS: BP 106/51
[2022-02-12] MEDS: ENOXAPARIN SOD 80 MG/0.8ML SYRINGE SC SCH ×2 (09:41→21:56)
[2022-02-12 13:00] VITALS: BP 123/55
[2022-02-12 16:50] VITALS: BP 119/59
[2022-02-12] MEDS: TAMSULOSIN HYDROCHLORIDE 0.4 MG CAP PO SCH (17:43)
[2022-02-12] MEDS: ATORVASTATIN 20 MG TAB PO SCH (21:55)
[2022-02-12] MEDS: LATANOPROST 0.005 % OPTH(EYE) SOL 2.5ML EACHEYE SCH (21:55)
[2022-02-12 23:16] VITALS: BP 113/53
[2022-02-13] MEDS: VANCOMYCIN 1GM/250ML 250 ML IV SCH ×2 (03:03→15:12)
[2022-02-13 06:13] VITALS: BP 113/51
[2022-02-13] MEDS: CLINDAMYCIN 600MG IV 50 ML IV SCH ×3 (06:25→22:03)
[2022-02-13] MEDS: ACCU-CHEK COMFORT CURVE STRIP VI SCH ×4 (07:03→22:04)
[2022-02-13] MEDS: INSULIN LANTUS (GLARGINE) 1 /0.01ml (100units/ml) SC SCH ×2 (07:15→22:05)
[2022-02-13] MEDS: InsuLIN REG 1unit/0.01ml Soln (100units/ml) SC SCH ×4 (07:16→22:07)
[2022-02-13 09:00] VITALS: BP 108/52
[2022-02-13] MEDS: ENOXAPARIN SOD 80 MG/0.8ML SYRINGE SC SCH ×2 (10:46→22:04)
[2022-02-13 12:44] VITALS: BP 114/75
[2022-02-13 17:00] VITALS: BP 126/54
[2022-02-13] MEDS: TAMSULOSIN HYDROCHLORIDE 0.4 MG CAP PO SCH (17:10)
[2022-02-13 22:00] VITALS: BP 136/56
[2022-02-13] MEDS: ATORVASTATIN 20 MG TAB PO SCH (22:04)
[2022-02-13] MEDS: LATANOPROST 0.005 % OPTH(EYE) SOL 2.5ML EACHEYE SCH (22:20)
[2022-02-14] MEDS: VANCOMYCIN 1GM/250ML 250 ML IV SCH ×2 (03:05→14:32)
[2022-02-14 05:00] VITALS: BP 116/59
[2022-02-14] MEDS: CLINDAMYCIN 600MG IV 50 ML IV SCH ×2 (06:03→13:30)
[2022-02-14] MEDS: INSULIN LANTUS (GLARGINE) 1 /0.01ml (100units/ml) SC SCH (06:48)
[2022-02-14] MEDS: InsuLIN REG 1unit/0.01ml Soln (100units/ml) SC SCH ×3 (06:48→11:50)
[2022-02-14] MEDS: ACCU-CHEK COMFORT CURVE STRIP VI SCH ×2 (06:57→11:51)
[2022-02-14 09:00] VITALS: BP 105/51
[2022-02-14] MEDS: ENOXAPARIN SOD 80 MG/0.8ML SYRINGE SC SCH (09:25)
[2022-02-14 13:00] VITALS: BP 141/65
== END 2022-02-14 15:25 | disposition left against medical advice (07) | DRG 853 ==
LOC: ER 03:58 → TELE 09:55 → ICU WEST 17:40 → TELE-EAST 01-28 18:13 → ICU WEST 02-07 16:19 → TELE-CENTR 02-11 01:23
PROVIDERS: ADMIT Registered Nurse; ATTEND Internal Medicine
PROC: B41G1ZZ Fluoroscopy of Left Lower Extremity Arteries using Low Osmolar Contrast (ICD-10-PCS; 2022-01-25)
PROC: B41F1ZZ Fluoroscopy of Right Lower Extremity Arteries using Low Osmolar Contrast (ICD-10-PCS; 2022-01-25)
PROC: 3E03317 Introduction of Other Thrombolytic into Peripheral Vein, Percutaneous Approach (ICD-10-PCS; principal; 2022-01-26)
PROC: 04CK3ZZ Extirpation of Matter from Right Femoral Artery, Percutaneous Approach (ICD-10-PCS; 2022-02-07)
PROC: 047K3ZZ Dilation of Right Femoral Artery, Percutaneous Approach (ICD-10-PCS; 2022-02-07)
PROC: 047K3DZ Dilation of Right Femoral Artery with Intraluminal Device, Percutaneous Approach (ICD-10-PCS; 2022-02-08)
PROC: 047M3ZZ Dilation of Right Popliteal Artery, Percutaneous Approach (ICD-10-PCS; 2022-02-08)
PROC: 047T3ZZ Dilation of Right Peroneal Artery, Percutaneous Approach (ICD-10-PCS; 2022-02-08)
PROC: 047P3ZZ Dilation of Right Anterior Tibial Artery, Percutaneous Approach (ICD-10-PCS; 2022-02-08)
PROC: 04CK3ZZ Extirpation of Matter from Right Femoral Artery, Percutaneous Approach (ICD-10-PCS; 2022-02-08)
PROC: 04CM3ZZ Extirpation of Matter from Right Popliteal Artery, Percutaneous Approach (ICD-10-PCS; 2022-02-08)
PROC: 04CT3ZZ Extirpation of Matter from Right Peroneal Artery, Percutaneous Approach (ICD-10-PCS; 2022-02-08)
PROC: 04CP3ZZ Extirpation of Matter from Right Anterior Tibial Artery, Percutaneous Approach (ICD-10-PCS; 2022-02-08)
DX: A41.9 Sepsis, unspecified organism (principal); E11.10 Type 2 diabetes mellitus with ketoacidosis without coma; R65.21 Severe sepsis with septic shock; N17.0 Acute kidney failure with tubular necrosis; J96.00 Acute respiratory failure, unspecified whether with hypoxia or hypercapnia; E46 Unspecified protein-calorie malnutrition; L03.115 Cellulitis of right lower limb; E87.0 Hyperosmolality and hypernatremia; E11.52 Type 2 diabetes mellitus with diabetic peripheral angiopathy with gangrene; I70.261 Atherosclerosis of native arteries of extremities with gangrene, right leg; J90 Pleural effusion, not elsewhere classified; Z20.822 Contact with and (suspected) exposure to COVID-19; E11.22 Type 2 diabetes mellitus with diabetic chronic kidney disease; N18.31 Chronic kidney disease, stage 3a; J44.9 Chronic obstructive pulmonary disease, unspecified; Z95.1 Presence of aortocoronary bypass graft; I25.10 Atherosclerotic heart disease of native coronary artery without angina pectoris; Z82.49 Family history of ischemic heart disease and other diseases of the circulatory system; I12.9 Hypertensive chronic kidney disease with stage 1 through stage 4 chronic kidney disease, or unspecified chronic kidney disease; D50.9 Iron deficiency anemia, unspecified; Z53.29 Procedure and treatment not carried out because of patient's decision for other reasons; E86.0 Dehydration; E87.5 Hyperkalemia; E87.6 Hypokalemia; Z68.26 Body mass index [BMI] 26.0-26.9, adult; Z86.711 Personal history of pulmonary embolism; Z86.718 Personal history of other venous thrombosis and embolism; Z87.891 Personal history of nicotine dependence
CPT/HCPCS: 36415; 36600; 71045; 71275; 80048; 80053; 80061; 80069; 80202; 80307; 81001; 82010; 82728; 82805; 82962; 83036; 83605; 83615; 83735; 83880; 83930; 84100; 84484; 85014; 85018; 85025; 85379; 85384; 85610; 85730; 86141; 86850; 86900; 86901; 86920; 87040; 87081; 93005; 93306; 93926; 93971; 96365; 96366; 96367; 96368; 96372; 96375; 96376; 97110; 97116; 97163; 97530; 99152; 99153; 99291; C1884; G0378; J0696; J1815; J2001; J2250; J2405; J2543; J3490; Q9967

== ENCOUNTER 2022-02-20 08:36 | Inpatient (IN) | payer OTHER ==
[~2022-02-20] VITALS: Ht 167.6 cm; Wt 73.0 kg
[~2022-02-20 08:36] MED LIST: APIX2.5T PO; ASPI1TAB20 PO; ATO40T PO; DOCU100T15 PO; FLUC200T50 PO; GLIP10TA9 PO; LATA0.0019 EACHEYE; METF-370 PO; MONT5CHW23 PO; MULT-928 PO; PIO30T PO; RAMI5CAP40 PO; TAM04C PO
[2022-02-20] MEDS ORDERED: DEXTROSE (50%) 50ML SYRG IV PRN ×2 (09:15→13:30)
[2022-02-20] MEDS ORDERED: INSULIN LANTUS (GLARGINE) 1 /0.01ml (100units/ml) SC ONE (09:15)
[2022-02-20] MEDS ORDERED: InsuLIN R (HUMAN) 100 UNITS in SODIUM CHL 0.9% 99 ML IV SCH (09:15)
[2022-02-20] MEDS ORDERED: SODIUM CHLORIDE 0.9% 1,000 ML IV ONE ×2 (09:15)
[2022-02-20 09:37] LABS: Basophils # (auto) 0.1 10 ^3/uL (0-0.2); Basophils % (auto) 0.5 % (0.0-2.0); Eosinophils # (auto) 0 10 ^3/uL (0-0.8); Eosinophils % (auto) 0.1 % (0.0-7.0); Hematocrit 36.7 % (41.0-53.0); Hemoglobin 10.2 g/dL (13.5-17.5); Lymphocytes # (auto) 1.2 10 ^3/uL (0.4-5.4); Lymphocytes % (auto) 7.1 % (10.0-50.0); Mean Corpuscular Hgb Conc. 27.9 g/dL (32.0-36.0); Mean Corpuscular Volume 86.2 fL (80.0-100.0); Monocytes # (auto) 0.6 10 ^3/uL (0-1.3); Monocytes % (auto) 3.9 % (0.0-12.0); Neutrophils # (auto) 14.5 10 ^3/uL (1.6-8.6); Neutrophils % (auto) 88.4 % (37.0-80.0); Nucleated Red Blood Cells % 0.1 %; Red Blood Cells 4.26 10^6/uL (4.5-5.90); Red Cell Distribution Width 20.9 % (11.8-14.3); White Blood Cell 16.4 10^3/uL (4.4-10.8)
[2022-02-20] MEDS ORDERED: SODIUM BICARBONATE 8.4 % INJ 50ML VIAL IV ONE ×2 (09:45→20:15)
[2022-02-20] MEDS: ACCU-CHEK COMFORT CURVE STRIP VI SCH ×9 (10:51→22:42)
[2022-02-20 11:22] LABS: Chloride 112 mmol/L (98-107); Sodium 139 mmol/L (136-145)
[2022-02-20 11:23] LABS: Alanine Aminotransferase 25 U/L (16-61); Albumin 3.1 g/dL (3.4-5.0); Alkaline Phosphatase 153 U/L (45-117); Aspartate Aminotransferase 12 U/L (15-37); BUN/Creatinine Ratio 11.3; Bilirubin, Total 0.4 mg/dL (0.2-1.0); Blood Urea Nitrogen 13 mg/dL (7-18); Calcium 9.1 mg/dL (8.5-10.1); GFR African American 81 mL/min; GFR Non-African American 67 mL/min; Total Protein 6.6 g/dL (6.4-8.2)
[2022-02-20 11:32] LABS: Anion Gap 24 (5-15); Carbon Dioxide 3 mmol/L (21-32)
[2022-02-20 11:33] LABS: Glucose 589 mg/dL (74-106); Potassium 5.6 mmol/L (3.5-5.1)
[2022-02-20 11:33] LABS: Urine WBC None Seen /hpf (0 - 3)
[2022-02-20 12:00] LABS: Urine Bacteria NONE SEEN /hpf (None Seen); Urine Blood Negative /uL (Negative); Urine Specific Gravity 1.018 (1.001-1.035)
[2022-02-20 12:08] LABS: Alcohol, Urine < 3.0 mg/dL (0-10); Amphetamine Screen, Urine NEGATIVE (NEGATIVE); Barbiturate Scree,Urine NEGATIVE (NEGATIVE); Benzodiazephine Screen, Urine NEGATIVE (NEGATIVE); Cannabinoid Screen, Urine NEGATIVE (NEGATIVE); Cocaine Screen, Urine NEGATIVE (NEGATIVE); Opiate Scree,Urine NEGATIVE (NEGATIVE); Phencyclidine Screen, Urine NEGATIVE (NEGATIVE)
[2022-02-20] MEDS ORDERED: MORPHINE SULFATE INJ 2 MG/ml SYRG IV PRN (12:45)
[2022-02-20] MEDS ORDERED: NITROGLYCERIN 0.4 MG SL TAB SL PRN (12:45)
[2022-02-20] MEDS ORDERED: ONDANSETRON HCL 4 MG/2 ML VIAL IV PRN (12:45)
[2022-02-20] MEDS ORDERED: VANCOMYCIN PER PHARMACY 0 MG IV SCH (13:00)
[2022-02-20] MEDS ORDERED: ACCU-CHEK COMFORT CURVE STRIP VI SCH (13:30)
[2022-02-20] MEDS: SODIUM CHLORIDE 0.9% 1,000 ML IV SCH ×2 (13:39→16:20)
[2022-02-20] MEDS: PIPERACILLIN-TAZOB 3.375GM 100 ML IV SCH ×2 (15:47→21:57)
[2022-02-20] MEDS: InsuLIN R (HUMAN) 100 UNITS in SODIUM CHL 0.9% 99 ML IV SCH (15:53)
[2022-02-20] MEDS: VANCOMYCIN 1GM/250ML 250 ML IV SCH (16:20)
[2022-02-20 16:32] LABS: Lactic Acid w/Reflex 2.5 mmol/L (0.4-2.0)
[2022-02-20 16:42] LABS: INR 1.13 (0.9-1.15)
[2022-02-20] MEDS ORDERED: PATIENTS OWN MEDICATION (Glipizide 10 MG) PO SCH (17:00)
[2022-02-20] MEDS: glipiZIDE 5 MG TAB PO SCH (17:28)
[2022-02-20] MEDS ORDERED: PATIENTS OWN MEDICATION (Atorvastatin Calcium (Lipitor) 1 TAB) PO SCH (18:00)
[2022-02-20 18:58] LABS: BUN/Creatinine Ratio 10.7; Potassium 4.2 mmol/L (3.5-5.1)
[2022-02-20] MEDS: ATORVASTATIN 20 MG TAB PO SCH (21:43)
[2022-02-20] MEDS: DOCUSATE SOD 100 MG CAP PO SCH (21:43)
[2022-02-20] MEDS ORDERED: APIXABAN 2.5 MG TAB PO SCH (22:00)
[2022-02-20] MEDS ORDERED: DOCUSATE SODIUM 200 MG PO SCH (22:00)
[2022-02-20 23:20] LABS: Hematocrit 33.2 % (41.0-53.0); Hemoglobin 9.9 g/dL (13.5-17.5)
[2022-02-21] MEDS: SODIUM CHLORIDE 0.9% 1,000 ML IV SCH ×4 (00:13→20:31)
[2022-02-21] MEDS: ACCU-CHEK COMFORT CURVE STRIP VI SCH ×21 (00:13→22:03)
[2022-02-21 02:53] LABS: Anion Gap 11 (5-15); BUN/Creatinine Ratio 13.8; Blood Urea Nitrogen 13 mg/dL (7-18); Carbon Dioxide 11 mmol/L (21-32); Chloride 129 mmol/L (98-107); GFR African American 102 mL/min; GFR Non-African American 84 mL/min; Glucose 181 mg/dL (74-106); Potassium 4.2 mmol/L (3.5-5.1); Sodium 151 mmol/L (136-145)
[2022-02-21] MEDS: VANCOMYCIN 1GM/250ML 250 ML IV SCH ×2 (04:45→17:27)
[2022-02-21 06:10] LABS: BUN/Creatinine Ratio 14.9; Calcium 8.7 mg/dL (8.5-10.1); Potassium 3.9 mmol/L (3.5-5.1)
[2022-02-21] MEDS: glipiZIDE 5 MG TAB PO SCH (06:24)
[2022-02-21] MEDS: PIPERACILLIN-TAZOB 3.375GM 100 ML IV SCH ×3 (06:24→21:10)
[2022-02-21] MEDS ORDERED: ceFAZolin 1GM/50ML 100 ML IV ONE (09:05)
[2022-02-21] MEDS: ceFAZolin 1GM VL ONE ×2 (09:08→09:34)
[2022-02-21] MEDS: ROPIVACAINE 0.5% (5MG/ML) 20ML AMPULE IJ ONE ×2 (09:09→09:34)
[2022-02-21] MEDS ORDERED: MIDAZOLAM HCL 2MG/2ML 2ml VIAL (1mg/ml) ONE (09:17)
[2022-02-21] MEDS ORDERED: fentaNYL CITRATE 100 MCG/2 ML VL ONE (09:17)
[2022-02-21] MEDS ORDERED: PROPOFOL 10 MG/ML 20 ML IV ONE (09:27)
[2022-02-21] MEDS: NEOMYCIN-BACITRACIN-POLYM 15GM TOP OINT TOP ONE ×2 (09:50→09:53)
[2022-02-21] MEDS ORDERED: ASPirin-EC 81 mg tab PO SCH (10:00)
[2022-02-21] MEDS ORDERED: MORPHINE SULFATE 4 MG/ML SYR/VIAL IV PRN (10:00)
[2022-02-21] MEDS ORDERED: ONDANSETRON HCL 4 MG/2 ML VIAL IV PRN (10:00)
[2022-02-21] MEDS: TAMSULOSIN HYDROCHLORIDE 0.4 MG CAP PO SCH (10:00)
[2022-02-21] MEDS ORDERED: ePHEDrine SULFATE 50 MG/ML AMP IV PRN (10:00)
[2022-02-21] MEDS ORDERED: RAMIPRIL 2.5 MG CAP PO SCH ×2 (10:00)
[2022-02-21] MEDS ORDERED: INSULIN LANTUS (GLARGINE) 1 /0.01ml (100units/ml) SC SCH (10:00)
[2022-02-21] MEDS: DOCUSATE SOD 100 MG CAP PO SCH ×2 (10:00→21:10)
[2022-02-21] MEDS ORDERED: RAMIPRIL PO SCH (10:00)
[2022-02-21] MEDS ORDERED: PIOGLITAZONE HYDROCHLORIDE 30 MG TAB PO SCH (10:00)
[2022-02-21] MEDS ORDERED: MIDAZOLAM HCL 2MG/2ML 2ml VIAL (1mg/ml) IV PRN (10:00)
[2022-02-21] MEDS ORDERED: ACCU-CHEK COMFORT CURVE STRIP VI ONE (10:00)
[2022-02-21] MEDS ORDERED: LABETALOL HCL 5 MG/ML 4ML SYRINGE IV PRN (10:00)
[2022-02-21] MEDS: InsuLIN R (HUMAN) 100 UNITS in SODIUM CHL 0.9% 99 ML IV SCH ×2 (10:11→11:26)
[2022-02-21 10:33] LABS: Basophils # (auto) 0 10 ^3/uL (0-0.2); Eosinophils # (auto) 0 10 ^3/uL (0-0.8); Monocytes # (auto) 0.7 10 ^3/uL (0-1.3); Nucleated Red Blood Cells % 0.1 %; Red Cell Distribution Width 19.8 % (11.8-14.3)
[2022-02-21 10:36] LABS: Basophils % (auto) 0.3 % (0.0-2.0); Eosinophils % (auto) 0.2 % (0.0-7.0); Hematocrit 32.2 % (41.0-53.0); Lymphocytes # (auto) 0.6 10 ^3/uL (0.4-5.4); Lymphocytes % (auto) 6.5 % (10.0-50.0); Mean Corpuscular Hemoglobin 24.3 pg (28.0-32.0); Mean Corpuscular Hgb Conc. 30.9 g/dL (32.0-36.0); Mean Corpuscular Volume 78.7 fL (80.0-100.0); Monocytes % (auto) 7.5 % (0.0-12.0); Neutrophils # (auto) 8.4 10 ^3/uL (1.6-8.6); Neutrophils % (auto) 85.5 % (37.0-80.0); White Blood Cell 9.8 10^3/uL (4.4-10.8)
[2022-02-21] MEDS ORDERED: HYDROcodone-ACET 5/325MG TAB PO PRN (13:30)
[2022-02-21] MEDS ORDERED: MORPHINE SULFATE INJ 2 MG/ml SYRG IV PRN (13:30)
[2022-02-21] MEDS ORDERED: ACETAMINOPHEN 500 MG TAB PO PRN (13:30)
[2022-02-21] MEDS ORDERED: DEXTROSE (50%) 50ML SYRG IV PRN (13:30)
[2022-02-21] MEDS ORDERED: PANTOPRAZOLE 40 MG/10 ML VIAL INJ IV ONE (13:30)
[2022-02-21] MEDS: InsuLIN REG 1unit/0.01ml Soln (100units/ml) SC SCH ×2 (15:41→20:16)
[2022-02-21 15:44] LABS: BUN/Creatinine Ratio 13.7; Calcium 7.9 mg/dL (8.5-10.1); Potassium 3.7 mmol/L (3.5-5.1)
[2022-02-21 16:30] VITALS: BP 103/63
[2022-02-21] MEDS: INSULIN LANTUS (GLARGINE) 1 /0.01ml (100units/ml) SC SCH (17:27)
[2022-02-21 20:00] VITALS: BP 121/54
[2022-02-21] MEDS: APIXABAN 2.5 MG TAB PO SCH (21:11)
[2022-02-21] MEDS: ATORVASTATIN 20 MG TAB PO SCH (21:12)
[2022-02-21 22:22] VITALS: BP 121/54
[2022-02-22] MEDS: ACCU-CHEK COMFORT CURVE STRIP VI SCH ×8 (00:15→23:32)
[2022-02-22] MEDS: InsuLIN REG 1unit/0.01ml Soln (100units/ml) SC SCH ×5 (00:16→16:44)
[2022-02-22 03:16] LABS: Basophils # (auto) 0 10 ^3/uL (0-0.2); Eosinophils # (auto) 0.1 10 ^3/uL (0-0.8); Hemoglobin 8.4 g/dL (13.5-17.5); Lymphocytes # (auto) 0.5 10 ^3/uL (0.4-5.4); Mean Corpuscular Hemoglobin 24.2 pg (28.0-32.0); Monocytes # (auto) 0.4 10 ^3/uL (0-1.3); Neutrophils # (auto) 4.2 10 ^3/uL (1.6-8.6); Neutrophils % (auto) 79.4 % (37.0-80.0); White Blood Cell 5.3 10^3/uL (4.4-10.8)
[2022-02-22 03:18] LABS: Basophils % (auto) 0.8 % (0.0-2.0); Eosinophils % (auto) 2.6 % (0.0-7.0); Hematocrit 26.4 % (41.0-53.0); Mean Corpuscular Hgb Conc. 31.8 g/dL (32.0-36.0); Mean Corpuscular Volume 76.1 fL (80.0-100.0); Monocytes % (auto) 7.2 % (0.0-12.0); Nucleated Red Blood Cells % 0.1 %; Red Blood Cells 3.48 10^6/uL (4.5-5.90)
[2022-02-22 03:19] LABS: Red Cell Distribution Width 20.7 % (11.8-14.3)
[2022-02-22 03:42] LABS: Albumin 2.2 g/dL (3.4-5.0); BUN/Creatinine Ratio 6.8; Calcium 7.6 mg/dL (8.5-10.1); Potassium 3.2 mmol/L (3.5-5.1)
[2022-02-22 03:45] LABS: Bilirubin, Total 0.2 mg/dL (0.2-1.0); Total Protein 4.5 g/dL (6.4-8.2)
[2022-02-22] MEDS: VANCOMYCIN 1GM/250ML 250 ML IV SCH ×2 (03:58→17:01)
[2022-02-22 04:21] VITALS: BP 112/51
[2022-02-22] MEDS: PIPERACILLIN-TAZOB 3.375GM 100 ML IV SCH ×3 (05:34→23:27)
[2022-02-22] MEDS: SODIUM CHLORIDE 0.9% 1,000 ML IV SCH (05:35)
[2022-02-22 09:00] VITALS: BP 121/64
[2022-02-22] MEDS: APIXABAN 2.5 MG TAB PO SCH ×2 (09:30→23:28)
[2022-02-22] MEDS: DOCUSATE SOD 100 MG CAP PO SCH ×2 (09:30→23:27)
[2022-02-22] MEDS: TAMSULOSIN HYDROCHLORIDE 0.4 MG CAP PO SCH (09:30)
[2022-02-22] MEDS ORDERED: PANTOPRAZOLE 40 MG/10 ML VIAL INJ IV SCH (10:00)
[2022-02-22] MEDS ORDERED: POTASSIUM CHL 20 Meq TABLET PO ONE (11:15)
[2022-02-22] MEDS ORDERED: DEXTROSE (50%) 50ML SYRG IV PRN (11:15)
[2022-02-22] MEDS: SOD CHL 0.45% WITH 20MEQ KCL 1,000 ML IV SCH (11:46)
[2022-02-22 13:00] VITALS: BP 132/69
[2022-02-22 17:00] VITALS: BP 127/73
[2022-02-22] MEDS: INSULIN LANTUS (GLARGINE) 1 /0.01ml (100units/ml) SC SCH (17:50)
[2022-02-22 22:00] VITALS: BP 123/53
[2022-02-22] MEDS ORDERED: InsuLIN REG 1unit/0.01ml Soln (100units/ml) SC SCH (22:00)
[2022-02-22] MEDS: ATORVASTATIN 20 MG TAB PO SCH (23:31)
[2022-02-23] MEDS: VANCOMYCIN 1GM/250ML 250 ML IV SCH (03:30)
[2022-02-23] MEDS: SOD CHL 0.45% WITH 20MEQ KCL 1,000 ML IV SCH ×3 (03:30→13:55)
[2022-02-23 04:17] LABS: Basophils # (auto) 0 10 ^3/uL (0-0.2); Basophils % (auto) 1.3 % (0.0-2.0); Eosinophils # (auto) 0.1 10 ^3/uL (0-0.8); Hematocrit 27.5 % (41.0-53.0); Hemoglobin 9.4 g/dL (13.5-17.5); Lymphocytes # (auto) 0.7 10 ^3/uL (0.4-5.4); Mean Corpuscular Hemoglobin 25.7 pg (28.0-32.0); Mean Corpuscular Hgb Conc. 34.2 g/dL (32.0-36.0); Mean Corpuscular Volume 75.2 fL (80.0-100.0); Monocytes # (auto) 0.4 10 ^3/uL (0-1.3); Neutrophils # (auto) 1.9 10 ^3/uL (1.6-8.6); Neutrophils % (auto) 60.7 % (37.0-80.0); Nucleated Red Blood Cells % 0.1 %; Red Blood Cells 3.65 10^6/uL (4.5-5.90); White Blood Cell 3.2 10^3/uL (4.4-10.8)
[2022-02-23 04:19] LABS: Red Cell Distribution Width 21.9 % (11.8-14.3)
[2022-02-23 04:39] LABS: BUN/Creatinine Ratio 8.3; Calcium 7.8 mg/dL (8.5-10.1); Potassium 3.3 mmol/L (3.5-5.1)
[2022-02-23 05:00] VITALS: BP 113/71
[2022-02-23] MEDS: PIPERACILLIN-TAZOB 3.375GM 100 ML IV SCH ×2 (06:54→14:00)
[2022-02-23] MEDS: ACCU-CHEK COMFORT CURVE STRIP VI SCH ×2 (06:54→12:08)
[2022-02-23] MEDS: InsuLIN REG 1unit/0.01ml Soln (100units/ml) SC SCH ×2 (06:55→12:10)
[2022-02-23 09:00] VITALS: BP 128/70
[2022-02-23] MEDS: APIXABAN 2.5 MG TAB PO SCH (09:35)
[2022-02-23] MEDS: TAMSULOSIN HYDROCHLORIDE 0.4 MG CAP PO SCH (09:35)
[2022-02-23] MEDS: DOCUSATE SOD 100 MG CAP PO SCH (09:35)
[2022-02-23] MEDS ORDERED: PANTOPRAZOLE 40 MG TAB PO SCH (10:00)
[2022-02-23] MEDS ORDERED: POTASSIUM CHL 20 Meq TABLET PO ONE (10:45)
[2022-02-23] MEDS ORDERED: INSLANTI SC (10:55)
[2022-02-23] MEDS ORDERED: AMOX500T86 PO (10:55)
[2022-02-23 13:00] VITALS: BP 111/61
== END 2022-02-23 14:52 | disposition home or self-care (01) | DRG 853 ==
LOC: EDBD 08:36 → ER 08:36 → OVERFLOW 12:40 → TELE-WESTW 02-21 14:35
PROVIDERS: ADMIT Registered Nurse; ATTEND Internal Medicine
PROC: 0Y6P0Z0 Detachment at Right 1st Toe, Complete, Open Approach (ICD-10-PCS; principal; 2022-02-21 09:21)
DX: A41.9 Sepsis, unspecified organism (principal); E11.10 Type 2 diabetes mellitus with ketoacidosis without coma; E11.52 Type 2 diabetes mellitus with diabetic peripheral angiopathy with gangrene; E87.1 Hypo-osmolality and hyponatremia; E87.0 Hyperosmolality and hypernatremia; E11.621 Type 2 diabetes mellitus with foot ulcer; I25.10 Atherosclerotic heart disease of native coronary artery without angina pectoris; J44.9 Chronic obstructive pulmonary disease, unspecified; E78.5 Hyperlipidemia, unspecified; I10 Essential (primary) hypertension; I48.91 Unspecified atrial fibrillation; L97.519 Non-pressure chronic ulcer of other part of right foot with unspecified severity; Z20.822 Contact with and (suspected) exposure to COVID-19; Z95.1 Presence of aortocoronary bypass graft; Z79.01 Long term (current) use of anticoagulants
CPT/HCPCS: 36415; 36600; 71045; 76700; 80048; 80053; 80202; 80307; 81001; 82010; 82805; 82962; 83605; 84484; 85014; 85018; 85025; 85610; 87081; 93005; 93925; 96361; 96374; C9113; G0378; J0690; J1815; J2250; J2405; J2543; J2704